=== PATIENT | female | born 2000 | race Caucasian/White ===

== ENCOUNTER 2022-01-03 08:00 | Outpatient (RCR) | payer BC | END 2022-01-15 | disposition home or self-care (01) | LOC: WSOT | DX: M25.532 Pain in left wrist (principal) ==

== ENCOUNTER 2022-02-10 11:16 | Emergency (ER) | payer BC ==
[~2022-02-10] VITALS: Ht 175.3 cm; Wt 70.9 kg
[2022-02-10 11:29] VITALS: TEMP 97.8
[2022-02-10 13:44] LABS: COLLECTION METHOD CLEAN CATCH
[2022-02-10 13:51] LABS: BASO % 0.2 % (0.0-2.0); EOS % 0.4 % (0.0-4.0); GRAN # 7.9 K/mm3 (1.4-6.5); GRAN % 78.3 % (42.2-75.2); HEMATOCRIT 43.9 % (37.0-47.0); HEMOGLOBIN 14.2 g/dl (12.5-16.0); LYMPH # 1.1 K/mm3 (1.2-3.4); LYMPH % 10.9 % (20.0-51.0); MEAN CELL VOLUME 95 fl (80.0-100.0); MEAN CORPUSCULAR HEMOGLOBIN 31 pg (27-31); MEAN CORPUSCULAR HGB CONC 32 g/dl (33.0-37.0); MEAN PLATELET VOLUME 10.2 fl (7.4-10.4); PLATELET COUNT 258 K/mm3 (130-400); RED BLOOD COUNT 4.62 M/mm3 (4.10-5.30); REDCELL DISTRIBUTION WIDTH-CV 12.5 % (11.5-14.5)
[2022-02-10 14:06] LABS: PH 6.5 (5.0-8.5); SQUAMOUS EPITHELIAL 0-2 /hpf (0-10); URINE APPEARANCE Turbid (CLEAR/HAZY); URINE BACTERIA Rare /hpf (NONE SEEN); URINE BLOOD 1+ (NEGATIVE); URINE COLOR Yellow (YELLOW); URINE GLUCOSE Negative (NEGATIVE); URINE KETONE Negative (NEGATIVE); URINE NITRATE Negative (NEGATIVE); URINE PROTEIN(semi-quant) Negative (NEGATIVE); URINE RBC 0-2 /hpf (0-2); URINE UROBILINOGEN 0.2 E.U/dL (0.2-1.0)
[2022-02-10 14:07] LABS: ALBUMIN 4.1 gm/dL (3.5-5.0); BILIRUBIN,TOTAL 0.4 mg/dL (0.2-1.2); CALCIUM 9.4 mg/dL (8.4-10.2); CREATININE, serum 0.73 mg/dL (0.57-1.11); POTASSIUM 3.9 mmol/L (3.5-4.5); TOTAL PROTEIN 7.9 gm/dL (6.2-8.1)
[2022-02-10 16:00] VITALS: BP 122/74; PULSE 66
== END 2022-02-10 16:00 | disposition home or self-care (01) ==
LOC: COL.ER 11:16
PROVIDERS: Physician Assistant
DX: R10.32 Left lower quadrant pain (principal); Z32.02 Encounter for pregnancy test, result negative
CPT/HCPCS: Q9967